=== PATIENT | female | born 1980 | race Caucasian/White ===

== ENCOUNTER 2017-08-09 03:19 | Emergency (ER) | payer MEDICAID, OTHER ==
[~2017-08-09] VITALS: Ht 162.6 cm; Wt 78.0 kg
[2017-08-09 03:35] VITALS: BP 132/66; PULSE 84; RESP 18; TEMP 98.5; O2SAT 100
[2017-08-09] MEDS ORDERED: ORPHENADRINE INJ 60 MG/2 ML AMP IM ONE (04:00)
[2017-08-09] MEDS ORDERED: KETOROLAC TROMETHAMINE 60 MG/2 ML (IM) VIAL IM ONE (04:00)
[2017-08-09] MEDS ORDERED: DEXAMETHASONE SOD PHOS 20 MG/5 ML VIAL IM ONE (04:00)
--- NOTE | 2017-08-09 04:17 | PD ---
HPI Chief Complaint: Pain: Acute or Chronic Time Seen by Provider: 03:50 Travel History International Travel<30 days: No Contact w/Intl Traveler<30days: No Traveled to known affect area: No History of Present Illness HPI Patient is a 36-year-old female presenting to the emergency department for evaluation of back pain. Back pain is chronic in nature however patient attempted to get out of bed to go to the bathroom just prior to arrival in her back tightened up. She localized the pain to the right paraspinal musculature in the lumbar region. She states the pain runs down the back of her right leg. She reports the pain is a 10 out of 10, she is currently taking Aleve only. Patient states she had an MRI performed with her primary doctor but does not know the results yet. She denies any bladder or bowel incontinence, no saddle paresthesia. No weakness in her extremities. Symptom onset was gradual, symptoms are moderate in nature. No alleviating factors. Pain is exacerbated with movement. PFSH Past Medical History Medical History: Denies Significant Hx ?: Not : 2 Para: 2 Past Surgical History Section: Yes Social History Alcohol Use: Yes (OCC) Tobacco Use: No Substance Use: No Allergies-Medications (Allergen,Severity, Reaction): Coded Allergies: penicillin V (Unverified Allergy, Mild, Rash, 10/28/16) Reported Meds & Prescriptions Reported Meds & Active Scripts Active Review of Systems Except as stated in HPI: all other systems reviewed are Neg Musculoskeletal: Positive: Myalgias, Cramping, Pain Neurologic: No: Weakness Physical Exam Narrative GENERAL: Well-developed, well-nourished, alert female. Presenting in no acute distress. SKIN: Warm and dry. HEAD: Atraumatic. Normocephalic. EYES: Pupils equal and round. No scleral icterus. No injection or drainage. ENT: No nasal bleeding or discharge. Mucous membranes pink and moist. NECK: Trachea midline. No JVD. CARDIOVASCULAR: Regular rate and rhythm. RESPIRATORY: No accessory muscle use. Clear to auscultation. Breath sounds equal bilaterally. GASTROINTESTINAL: Abdomen soft, non-tender, nondistended. Hepatic and splenic margins not palpable. MUSCULOSKELETAL: Extremities without clubbing, cyanosis, or edema. No obvious deformities. Tenderness to palpation in right paraspinal musculature in the lumbar region. NEUROLOGICAL: Awake and alert. No obvious cranial nerve deficits. Motor grossly within normal limits. Five out of 5 muscle strength in the arms and legs. Normal speech. Gait is steady. PSYCHIATRIC: Appropriate mood and affect; insight and judgment normal. Data Data Last Documented VS Vital Signs Date Time Temp Pulse Resp B/P (MAP) Pulse Ox O2 Delivery O2 Flow Rate FiO2 08/09/17 03:38 85 08/09/17 03:35 98.5 18 132/66 (88) 100 Orders Orders Ketorolac Inj (Toradol Inj) (08/09/17 04:00) Dexamethasone Inj (Decadron Inj) (08/09/17 04:00) Orphenadrine Inj (Norflex Inj) (08/09/17 04:00) Ed Discharge Order (08/09/17 05:40) [facility] Medical Decision Making Medical Screen Exam Complete: Yes Emergency Medical Condition: Yes Interpretation(s) Vital Signs Date Time Temp Pulse Resp B/P (MAP) Pulse Ox O2 Delivery O2 Flow Rate FiO2 08/09/17 03:38 85 08/09/17 03:35 98.5 84 18 132/66 (88) 100 Differential Diagnosis Muscle strain versus muscle spasm versus radiculopathy versus sciatica versus other Narrative Course Patient is a 36-year-old female presenting for evaluation of back pain that exacerbated when she got out of bed to go to the bathroom just prior to arrival. Patient was able to get out of bed and walk across the room in the emergency department. There are no focal deficits on exam. Patient was able to localize the pain to the paraspinal musculature in the lumbar region. At this point patient will be given Toradol, Norflex and dexamethasone. Will reassess. Care of patient was transferred to Kayy SIMEON at the end of my shift. She will determine patient's disposition. Wen Pascal August 09, 2017 04:17
--- NOTE | 2017-08-09 05:03 | PD ---
Physical Exam Date Seen by Provider: August 09, 2017 Narrative 36y female presents to the ED with LBP. She was evaluated by JUAN ANTONIO Carver and treated with Toradol, Norflex, and dexamethasone. Pt is reassessed and says she feels better. She says her legs are not as painful. She tells me that she had an MRI this week but has not had a follow-up regarding this imaging study. Says that she did not receive a phone call regarding any concerning findings except for a "bulging disc". This is reassuring. I had a discussion with her and her family regarding possible causes of her back pain I suspect that she has a severe muscle spasm versus strain of the back. Pt is ambulatory out of the ED today. Will discharge with muscle relaxer, Medrol Dosepak, and Toradol, She is strongly advised to follow up with her PCP and consider ortho. Data Data Last Documented VS Vital Signs Date Time Temp Pulse Resp B/P (MAP) Pulse Ox O2 Delivery O2 Flow Rate FiO2 08/09/17 03:38 85 08/09/17 03:35 98.5 18 132/66 (88) 100 Orders Orders Ketorolac Inj (Toradol Inj) (08/09/17 04:00) Dexamethasone Inj (Decadron Inj) (08/09/17 04:00) Orphenadrine Inj (Norflex Inj) (08/09/17 04:00) MDM Supervised Visit with JUAN CARLOS: No Diagnosis Primary Impression: Radiculopathy Qualified Codes: M54.17 - Radiculopathy, lumbosacral region Referrals: Primary Care Physician Additional Instruction: Perform light stretches of the lower back and legs, and alternate heat and ice packs. Take all medications as prescribed. Recommend follow-up with an orthopedic or realty loan specialist for further evaluation if your pain persists. Start the Medrol Dosepak tomorrow if your pain persists as you received a steroid in the emergency department today. If you develop increased pain, weakness, fever, chills, or bowel or bladder issues, return to the ED for further treatment and evaluation. Follow up with your primary care physician in 2-3 days. Scripts Methylprednisolone Dosepak (Medrol Dosepak) 4 Mg Dspk 4 MG PO DIRECTED, #1 DSPK 0 Refills Per Pharmacist direction Prov: Emil Cid DO 08/09/17 Methocarbamol (Robaxin) 750 Mg Tab 750 MG PO TID for Muscle Spasm for 5 Days, TAB 0 Refills Prov: Emil Cid DO 08/09/17 Ketorolac (Ketorolac) 10 Mg Tab 10 MG PO TID for Pain Management for 5 Days, TAB 0 Refills Prov: Emil Cid DO 08/09/17 Disposition: 01 DISCHARGE HOME Condition: Stable Kayy Meng August 09, 2017 05:03
[2017-08-09] MEDS ORDERED: MEDR4PAK PO (05:37)
[2017-08-09] MEDS ORDERED: ROBA750T PO (05:37)
[2017-08-09] MEDS ORDERED: KETO10 PO (05:37)
== END 2017-08-09 06:42 | disposition home or self-care (01) ==
LOC: NEPD 03:19
DX: M54.17 Radiculopathy, lumbosacral region (principal)
CPT/HCPCS: 96372; 99283; J1100; J1885; J2360

== ENCOUNTER 2017-08-09 07:54 | Inpatient (IN) | payer MEDICAID ==
[~2017-08-09] VITALS: Ht 157.5 cm; Wt 75.5 kg
[~2017-08-09 07:54] MED LIST: KETO10 PO; MEDR4PAK PO; ROBA750T PO
[2017-08-09 07:56] VITALS: BP 129/81; PULSE 118; RESP 20; TEMP 97.8; O2SAT 96
--- NOTE | 2017-08-09 08:33 | PD ---
HPI Chief Complaint: Back/ Neck Pain or Injury Time Seen by Provider: 08:18 Travel History International Travel<30 days: No Contact w/Intl Traveler<30days: No Traveled to known affect area: No History of Present Illness HPI 36-year-old female complains of severe low back pain, numbness around the pelvic area, weakness of lower extremity and urinary bladder incontinence. Patient states that she has history of chronic low back pain. Patient finally saw her physician a week ago. MRI of lumbar spine was ordered as outpatient at [facility] imaging. MRI of lumbar spine show significant central disc protrusion at L5-S1 with central canal stenosis. Patient states that she has been taking Aleve for pain. Patient had a trial of 4 days of oral steroid in the past without relief of the pain. Patient states that the pain get worse since last night. Patient states that the pain is sharp pain and aching pain with radiation to the right leg. Patient states that the pain is worse with movement. Patient states that she started having numbness of the pelvic area since last night. Patient states that she had urinary bladder incontinence this morning. Patient states that she has severe weakness of bilateral lower extremity that she was unable to walk this morning. Patient denies any injury. Patient denies any fever chills. Patient denies any medical problem. Patient is not on any routine medications except Aleve as needed for back pain. Patient denies any chance of being . Patient was seen in emergency room earlier today. Patient was given Toradol, Norflex and dexamethasone injection. Patient was discharged home with prescription for Medrol Dosepak and pain medication. Patient states that the pain is worse and patient came back to ED. PFSH Past Medical History Medical History: Denies Significant Hx ?: Not LMP: 07/15/17 : 2 Para: 2 Past Surgical History Section: Yes Social History Alcohol Use: Yes (OCC) Tobacco Use: No Substance Use: No Allergies-Medications (Allergen,Severity, Reaction): Coded Allergies: penicillin V (Unverified Allergy, Mild, Rash, 10/28/16) Reported Meds & Prescriptions Reported Meds & Active Scripts Active Medrol Dosepak (Methylprednisolone) 4 Mg Dspk 4 Mg PO DIRECTED Per Pharmacist direction Robaxin (Methocarbamol) 750 Mg Tab 750 Mg PO TID 5 Days Ketorolac (Ketorolac Tromethamine) 10 Mg Tab 10 Mg PO TID 5 Days Review of Systems General / Constitutional: No: Fever Eyes: No: Visual changes HENT: No: Headaches Cardiovascular: No: Chest Pain or Discomfort Respiratory: No: Shortness of Breath Gastrointestinal: No: Abdominal Pain Genitourinary: No: Dysuria Musculoskeletal: No: Pain Skin: No Rash Neurologic: Positive: Weakness, Paresthesia, Incontinence Psychiatric: No: Depression Endocrine: No: Polydipsia Hematologic/Lymphatic: No: Easy Bruising Physical Exam Narrative GENERAL: Well-nourished, well-developed patient. SKIN: Focused skin assessment warm/dry. HEAD: Normocephalic. EYES: No scleral icterus. No injection or drainage. NECK: Supple, trachea midline. No JVD or lymphadenopathy. CARDIOVASCULAR: Regular rate and rhythm without murmurs, gallops, or rubs. RESPIRATORY: Breath sounds equal bilaterally. No accessory muscle use. GASTROINTESTINAL: Abdomen soft, non-tender, nondistended. MUSCULOSKELETAL: No cyanosis, or edema. BACK: Patient has moderate to severe tenderness in palpation of lumbar area, without obvious deformity. No CVA tenderness. Positive straight leg raising bilaterally. Neurologic exam: Patient is awake and alert oriented 3. Patient has mild decrease in light touch sensation in the pelvic area. Patient can lift both legs off the bed. Deep tendon reflex 2+ and equal. Negative Babinski. Data Data Last Documented VS Vital Signs Date Time Temp Pulse Resp B/P (MAP) Pulse Ox O2 Delivery O2 Flow Rate FiO2 08/09/17 07:56 97.8 118 20 129/81 (97) 96 Orders Orders Complete Blood Count With Diff (08/09/17 08:39) Basic Metabolic Panel (Bmp) (08/09/17 08:39) Urinalysis - C+S If Indicated (08/09/17 08:39) Iv Access Insert/Monitor (08/09/17 08:39) Morphine Inj (Morphine Inj) (08/09/17 08:45) Ondansetron Odt (Zofran Odt) (08/09/17 08:45) Sodium Chlor 0.9% 1000 Ml Inj (Ns 1000 M (08/09/17 08:45) Consult Neurosurgery (08/09/17 ) [facility] Medical Decision Making Medical Screen Exam Complete: Yes Emergency Medical Condition: Yes Differential Diagnosis Differential diagnosis including cauda equina syndrome, radiculopathy, spinal stenosis. Narrative Course 36-year-old female with severe low back pain, urinary incontinence, numbness around the pelvis area and weakness of lower extremity. Patient was seen and given pain medication without relief. I spoke with Dr. Guadalupe, neurosurgeon. Advised admission and neurosurgeon evaluation. N.p.o. Normal saline solution 1 25 cc an hour. Morphine 2 mg IV. Zofran 4 mg ODT. Diagnosis Primary Impression: Cauda equina syndrome Admitting Information Admitting Physician Requests: Observation Pb Alves MD August 09, 2017 08:33
[2017-08-09] MEDS ORDERED: ONDANSETRON ODT 4 MG TAB PO ONE (08:45)
[2017-08-09] MEDS ORDERED: MORPHINE SULFATE 4 MG/ML INJ IV PUSH ONE (08:45)
[2017-08-09] MEDS ORDERED: SODIUM CHLOR 0.9% 1000 ML INJ 1,000 ML IV SCH ×2 (08:45→09:16)
[2017-08-09 09:16] VITALS: BP 121/68; PULSE 108; RESP 18; O2SAT 98
--- NOTE | 2017-08-09 09:16 | HHI.HP ---
[facility] Service Family Medicine Primary Care Physician Kam Blake MD Admission Diagnosis Cauda equina syndrome Diagnoses: International Travel<30 Days: No Contact w/Intl Traveler<30days: No Known Affected Area: No History of Present Illness 36-year-old female presents to the ED with severe low back pain, pelvic numbness , and urinary incontinence. Accompanied by . Patient states that she has had chronic back pain for months. She states that 2 weeks ago she couldn't get out of bed and started having sharp, shooting, aching pain starting from her lower back down to her right leg. States that she had numbness and tingling in her legs as well. She states that she is only able to walk short periods throughout the house due to pain. States that she has been mostly bedrest for the past 2 weeks. She has tried Aleve without relief. She has had no prior injuries to her back. She states that she tripped over her dog and fell on her bottom prior to her symptoms. She states that she saw her physician , Dr. Blake, a week ago. MR lumbar spine without contrast was ordered. MRI spine on 08-06-17 demonstrated significant central disc protrusion at L5-S1 with central canal stenosis. Patient was prescribed 4 days of oral steriods without relief. She was also referred to pain management but was unable to go. Last night she came to the ER around 3 AM via [facility] for severe back pain and pelvic numbness. states that she could not get out of bed because of the pain. She was given Toradol, Norflex, and dexamethasone injection. She was discharged home. On her way home, she states that she had loss control of her bladder and continued to have severe back pain. She was advised by her nurse friend to come back to the ED. She states that she has difficulty walking due to weakness, but is able to move her legs. She denies chest pain, shortness of breath, headache, abdominal pain, and nausea vomiting. (Maggie Fuentes MD R1) History of Present Illness 36-year-old female presenting to the emergency department with relatively acute onset severe low back pain with radicular symptoms and urinary incontinence. She has a history of chronic back pain for several months but started having radicular symptoms approximately 2 weeks ago. She presented to the emergency department with acute onset numbness around her pelvis and urinary incontinence. 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 She did not receive any relief with oral corticosteroids, Toradol, Norflex, or dexamethasone injection. She was seen by neurosurgery who plans to take her to the operating room for emergent decompression of the L5-S1 protruding disc. (Dustin Vazquez MD) Review of Systems Constitutional: COMPLAINS OF: Chills, DENIES: Fever, Weight loss, Change in appetite Endocrine: DENIES: Abnorml menstrual pattern Eyes: DENIES: Eye pain Ears, nose, mouth, throat: DENIES: Hearing loss, Nasal discharge, Running Nose , Sinus Pain Respiratory: DENIES: Cough, Shortness of breath Cardiovascular: DENIES: Chest pain, Palpitations Gastrointestinal: COMPLAINS OF: Nausea, DENIES: Abdominal pain, Bloody stools, Diarrhea, Vomiting Genitourinary: DENIES: Abnormal vaginal bleeding, Dysuria Musculoskeletal: COMPLAINS OF: Back pain Integumentary: DENIES: Rash Neurologic: DENIES: Headache (hx of migranes ) (Maggie Fuentes MD R1) Past Family Social History Past Medical History None Past Surgical History two C-sections- uncomplicated (Maggie Fuentes MD R1) Allergies: Coded Allergies: penicillin V (Unverified Allergy, Mild, Rash, 10/28/16) Family History Mom and Dad- alive and healthy Social History [id number] mom, lives with and 2 kids Never smoker Occasional drinker Denies illicit drug use (Maggie Fuentes MD R1) Physical Exam Vital Signs Vital Signs Date Time Temp Pulse Resp B/P (MAP) Pulse Ox O2 Delivery O2 Flow Rate FiO2 08/09/17 07:56 97.8 118 20 129/81 (97) 96 Physical Exam GENERAL: This is a well-nourished, well-developed patient, in no apparent distress. SKIN: No rashes, ecchymoses or lesions. Cool and dry. HEAD: Atraumatic. Normocephalic. No temporal or scalp tenderness. EYES: Pupils equal round and reactive. Extraocular motions intact. No scleral icterus. No injection or drainage. ENT: Nose without bleeding, purulent drainage or septal hematoma. Throat without erythema, tonsillar hypertrophy or exudate. Uvula midline. Airway patent. NECK: Trachea midline. No JVD or lymphadenopathy. Supple, nontender, no meningeal signs. CARDIOVASCULAR: Regular rate and rhythm without murmurs, gallops, or rubs. RESPIRATORY: Clear to auscultation. Breath sounds equal bilaterally. No wheezes , rales, or rhonchi. GASTROINTESTINAL: Abdomen soft, non-tender, nondistended. No hepato-splenomegaly , or palpable masses. No guarding. MUSCULOSKELETAL: Extremities without clubbing, cyanosis, or edema. No joint tenderness, effusion, or edema noted. No calf tenderness. Negative Homans sign bilaterally. NEUROLOGICAL: Awake, alert, and oriented x 3. Cranial nerves II through XII intact. Motor and sensory wnl b/l. Saddle anesthesia noted. 5/5 in upper extremities. 4/5 in lower extremities. No foot drop noted. Reflexes 2+ in upper and lower extremities. No clonus noted. Rcvosl-[id number]-[id number] test normal. Negative pronator drift. Normal speech. Laboratory Laboratory Tests Test 08/09/17 08:05 (Maggie Fuentes MD R1) Physical Exam Patient being taken to the OR so exam was deferred. See resident physical exam for details (Dustin Vazquez MD) Caprini VTE Risk Assessment Caprini VTE Risk Assessment: No/Low Risk (score <= 1) Caprini Risk Assessment Model Point Value = 1 Point Value = 2 Point Value = 3 Point Value = 5 Age 41-60 Minor surgery BMI > 25 kg/m2 Swollen legs Varicose veins or History of unexplained or recurrent spontaneous Oral contraceptives or hormone replacement Sepsis (< 1 month) Serious lung disease, including pneumonia (< 1 month) Abnormal pulmonary function Acute myocardial infarction Congestive heart failure (< 1 month) History of inflammatory bowel disease Medical patient at bed rest Age 61-74 Arthroscopic surgery Major open surgery (> 45 min) Laparoscopic surgery (> 45 min) Malignancy Confined to bed (> 72 hours) Immobilizing plaster cast Central venous access Age >= 75 History of VTE Family history of VTE Factor V Leiden Prothrombin [id number] Lupus anticoagulant Anticardiolipin antibodies Elevated serum homocysteine Heparin-induced thrombocytopenia Other congenital or acquired thrombophilia Stroke (< 1 month) Elective arthroplasty Hip, pelvis, or leg fracture Acute spinal cord injury (< 1 month) Prophylaxis Regimen Total Risk Factor Score Risk Level Prophylaxis Regimen 0-1 Low Early ambulation 2 Moderate Order ONE of the following: *Sequential Compression Device (SCD) *Heparin 5000 units SQ BID 3-4 Higher Order ONE of the following medications: *Heparin 5000 units SQ TID *Enoxaparin/Lovenox 40 mg SQ daily (WT < 150 kg, CrCl > 30 mL/min) *Enoxaparin/Lovenox 30 mg SQ daily (WT < 150 kg, CrCl > 10-29 mL/min) *Enoxaparin/Lovenox 30 mg SQ BID (WT < 150 kg, CrCl > 30 mL/min) AND/OR *Sequential Compression Device (SCD) 5 or more Highest Order ONE of the following medications: *Heparin 5000 units SQ TID (Preferred with Epidurals) *Enoxaparin/Lovenox 40 mg SQ daily (WT < 150 kg, CrCl > 30 mL/min) *Enoxaparin/Lovenox 30 mg SQ daily (WT < 150 kg, CrCl > 10-29 mL/min) *Enoxaparin/Lovenox 30 mg SQ BID (WT < 150 kg, CrCl > 30 mL/min) AND *Sequential Compression Device (SCD) (Maggie Fuentes MD R1) Assessment and Plan Assessment and Plan 36-year-old female presents to the ED with saddle anesthesia and urinary incontinence consistent with cauda equina syndrome. Neurosurgery consulted. Code Status Full code Discussed Condition With Dr. Alves and Dr. Little (Maggie Fuentes MD R1) Attending Attestation THIS CASE WAS DISCUSSED WITH THE RESIDENT PHYSICIANS. I HAVE REVIEWED THE RECORD AND AGREE WITH THE ABOVE NOTE AND PLAN OF CARE WAS DISCUSSED. I HAVE AUTHORIZED THE ORDER FOR ADMISSION TO AN IN-PATIENT STATUS. (Dustin Vazquez MD) Problem List: (1) Cauda equina syndrome ICD Codes: G83.4 - Cauda equina syndrome Status: Acute Plan: Patient presenting with cauda equina urinary incontinence. MRI lumbar spine without contrast on 08-06-17 demonstrates central disc protrusion at L5-S1 with central canal stenosis Neurosurgery consulted. will see patient for possible surgery. NPO IV fluids- maintenance rate Pain control with Manley and morphine for breakthrough Mann catheter placed Patient received ketorolac 60 mg IM, dexamethasone 10 mg IM and Norflex 60 mg IM during first visit to the ED this morning. (2) Nutrition, metabolism, and development symptoms ICD Codes: R63.8 - Other symptoms and signs concerning food and fluid intake Plan: Diet: N.p.o. Fluids: NS MIVF vitals q4h, monitor I &Os DVT ppx: SCDs PT and case management consulted (Maggie Fuentes MD R1) Physician Certification 2 Midnight Certification Type: Admission for Inpatient Services Order for Inpatient Services The services are ordered in accordance with Medicare regulations or non- Medicare payer requirements, as applicable. In the case of services not specified as inpatient-only, they are appropriately provided as inpatient services in accordance with the 2-midnight benchmark. Estimated LOS (days): 2 2 days is the estimated time the patient will need to remain in the hospital, assuming treatment plan goals are met and no additional complications. Post-Hospital Plan: Home (Maggie Fuentes MD R1) Maggie Fuentes MD R1 August 09, 2017 09:16 Dustin Vazquez MD August 09, 2017 14:25
[2017-08-09 09:20] LABS: AUTOMATED NEUTROPHIL # 8.9 TH/MM3 (1.8-7.7); BASOPHIL % 0.2 % (0.0-2.0); HEMATOCRIT 40.1 % (35.0-46.0); HEMOGLOBIN 13.2 GM/DL (11.6-15.3); LYMPH % 4.6 % (9.0-44.0); LYMPHOCYTE # 0.4 TH/MM3 (1.0-4.8); MEAN CELL VOLUME 80.1 FL (80.0-100.0); MEAN CORPUSCULAR HEMOGLOBIN 26.5 PG (27.0-34.0); MEAN PLATELET VOLUME 8.5 FL (7.0-11.0); MONO % 0.8 % (0.0-8.0); MONOCYTE # 0.1 TH/MM3 (0-0.9); NEUT % 94.4 % (16.0-70.0); PLATELET COUNT 268 TH/MM3 (150-450); RED BLOOD COUNT 5.01 MIL/MM3 (4.00-5.30); RED CELL DISTRIBUTION WIDTH 13.7 % (11.6-17.2); WHITE BLOOD COUNT 9.4 TH/MM3 (4.0-11.0)
[2017-08-09] MEDS: SODIUM CHLORIDE 0.9% FLUSH 10 ML FLUSH IV FLUSH SCH ×2 (09:30→21:00)
[2017-08-09 09:42] LABS: BICARBONATE 21.3 MEQ/L (21.0-32.0); CALCIUM 9.4 MG/DL (8.5-10.1); CREATININE 0.69 MG/DL (0.50-1.00)
[2017-08-09] MEDS ORDERED: MAGNESIUM HYDROXIDE SUSP 30 ML CUP PO PRN (10:00)
[2017-08-09] MEDS ORDERED: BISACODYL 10 MG SUPP RECTAL PRN (10:00)
[2017-08-09] MEDS ORDERED: SENNOSIDES 8.6 MG TAB PO PRN (10:00)
[2017-08-09] MEDS ORDERED: ACETAMINOPHEN/HYDROcodone 325 MG/5 MG TAB PO PRN (10:00)
[2017-08-09 11:11] LABS: BILIRUBIN, URINE NEG (NEG); BLOOD, URINE NEG (NEG); GLUCOSE,URINE NEG (NEG); KETONE, URINE 10 mg/dL (NEG); NITRITE,URINE NEG (NEG); PH, URINE 6.5 (5.0-8.5); SQUAMOUS EPITHELIAL CELL URINE 1 /hpf (0-5); URINE COLOR YELLOW (YELLW/STRAW); URINE LEUKOCYTE ESTERASE NEG (NEG)
[2017-08-09] MEDS: DOCUSATE SODIUM 50 MG/SENNA 8.6 MG TAB PO SCH ×2 (11:52→21:12)
[2017-08-09] MEDS: ACETAMINOPHEN/HYDROcodone 325 MG/7.5 MG TAB PO PRN ×2 (11:56→19:26)
[2017-08-09] MEDS ORDERED: LIDOCAINE HCL 1% PF 5 ML SYRINGE OTHER ONE (12:00)
[2017-08-09] MEDS ORDERED: PHENYLEPH/NS 1000 MCG/10 ML SYR IV ONE (12:00)
[2017-08-09] MEDS ORDERED: ONDANSETRON HCL 4 MG/2 ML VIAL IV PUSH ONE (12:00)
[2017-08-09] MEDS ORDERED: PROPOFOL 200 MG/20 ML AMP IV ONE (12:00)
[2017-08-09] MEDS ORDERED: ROCURONIUM INJ 50 MG/5 ML SYRINGE IV PUSH ONE (12:00)
[2017-08-09] MEDS ORDERED: GLYCOPYRROLATE 1 MG/5 ML SYRINGE IV PUSH ONE (12:00)
[2017-08-09] MEDS ORDERED: DEXAMETHASONE SOD PHOS 4 MG/ML VIAL IV ONE ×2 (12:00)
[2017-08-09] MEDS ORDERED: NEOSTIGMINE 5 MG/5 ML SYRINGE IV PUSH ONE (12:00)
[2017-08-09] MEDS ORDERED: LACTATED RINGER'S 1000 ML INJ 2,000 ML IV ONE (12:00)
[2017-08-09] MEDS ORDERED: ESMOLOL HCL 100 MG/10 ML VIAL IV ONE (12:00)
[2017-08-09 12:18] VITALS: BP 112/63; PULSE 102; RESP 18; TEMP 97.6; O2SAT 97
--- NOTE | 2017-08-09 12:35 | PD.CONS ---
History of Present Illness Service Neurosurgery Consult Requested By Medicine service Reason for Consult Lumbar disc herniation Primary Care Physician Kam Blake MD Diagnoses: History of Present Illness 36-year-old female presented to the emergency room early on the morning of 2017 with complaint of chronic back pain with acute onset of severe spasm when she try to get out of bed just prior to her emergency room visit. She states that the severe low back pain with some radiation to the right lower extremity started approximately 10 days ago. She had no numbness in the pelvic region or lower extremities until early this morning. She was given Toradol and Norflex and dexamethasone in the emergency room earlier this morning with significant improvement in her pain symptoms. She was released home for follow- up with her primary care physician who had previously obtained an MRI of the lumbar spine on 08/06/2017. The patient returned to the emergency room later this morning with complaint of recurrent severe low back pain with numbness around the pelvic region and lower extremity weakness and bladder incontinence which she states started earlier in the morning. Review of Systems Constitutional: DENIES: Fever, Chills Eyes: DENIES: Blurred vision, Diplopia Ears, nose, mouth, throat: DENIES: Vertigo Respiratory: DENIES: Shortness of breath Cardiovascular: DENIES: Chest pain Gastrointestinal: DENIES: Abdominal pain, Nausea Genitourinary: COMPLAINS OF: Urinary incontinence Musculoskeletal: COMPLAINS OF: Muscle aches, Back pain, DENIES: Joint pain Hematologic/lymphatic: DENIES: Bruising Neurologic: COMPLAINS OF: Abnormal gait, DENIES: Headache Psychiatric: DENIES: Depression Past Family Social History Allergies: Coded Allergies: penicillin V (Unverified Allergy, Mild, Rash, 10/28/16) Past Medical History No history of significant cardiac pulmonary gastrointestinal disease diabetes or hypertension Past Surgical History Reported Medications Reported Meds & Active Scripts Active Social History No tobacco use Occasional alcohol Physical Exam Vital Signs Vital Signs Date Time Temp Pulse Resp B/P (MAP) Pulse Ox O2 Delivery O2 Flow Rate FiO2 08/09/17 12:18 97.6 102 18 112/63 (79) 97 08/09/17 10:36 (85) 08/09/17 09:30 16 08/09/17 09:16 108 18 121/68 (85) 98 Room Air 08/09/17 07:56 97.8 118 20 129/81 (97) 96 Physical Exam GENERAL: This is a well-nourished, well-developed patient, in no apparent distress. SKIN: No rashes, ecchymoses or lesions. Cool and dry. EYES: Sclera clear and nonicteric ENT: No facial edema or ecchymosis NECK: No apparent limitation of neck range of motion CARDIOVASCULAR: Pulse regular RESPIRATORY: Respirations clear nonlabored GASTROINTESTINAL: Abdomen soft, non-tender, nondistended. MUSCULOSKELETAL: No edema or cyanosis. No upper or lower extremity long bone or joint deformity NEUROLOGICAL: Awake and alert oriented conversant appropriate Speech clear Recent and remote memory intact No evidence of anxiety Reasonable judgment and insight Follow simple commands well Extraocular movements intact Facial motor movements symmetric Sensation intact light touch upper extremity and proximal lower extremities with complaint of paresthesias to light touch in the bilateral calf and foot. Strength is within normal limits throughout the upper extremity major flexion and extension groups and hand intrinsics She has 4-4+/5 strength in bilateral iliopsoas quadriceps and hamstrings with complaint of back pain with this testing. Strength is 5/5 in bilateral tibialis anterior, gastrocsoleus, extensor hallucis longus, and flexor digitorum. Goldberg's response absent bilateral No lower extremity spasms noted Laboratory Laboratory Tests Test 08/09/17 08:05 08/09/17 10:30 White Blood Count 9.4 Red Blood Count 5.01 Hemoglobin 13.2 Hematocrit 40.1 Mean Corpuscular Volume 80.1 Mean Corpuscular Hemoglobin 26.5 Mean Corpuscular Hemoglobin Concent 33.0 Red Cell Distribution Width 13.7 Platelet Count 268 Mean Platelet Volume 8.5 Neutrophils (%) (Auto) 94.4 Lymphocytes (%) (Auto) 4.6 Monocytes (%) (Auto) 0.8 Eosinophils (%) (Auto) 0.0 Basophils (%) (Auto) 0.2 Neutrophils # (Auto) 8.9 Lymphocytes # (Auto) 0.4 Monocytes # (Auto) 0.1 Eosinophils # (Auto) 0.0 Basophils # (Auto) 0.0 CBC Comment DIFF FINAL Differential Comment Blood Urea Nitrogen 17 Creatinine 0.69 Random Glucose 140 Calcium Level 9.4 Sodium Level 139 Potassium Level 3.9 Chloride Level 110 Carbon Dioxide Level 21.3 Anion Gap 8 Estimat Glomerular Filtration Rate 97 Urine Color YELLOW Urine Turbidity CLEAR Urine pH 6.5 Urine Specific [place] 1.011 Urine Protein NEG Urine Glucose (UA) NEG Urine Ketones 10 Urine Occult Blood NEG Urine Nitrite NEG Urine Bilirubin NEG Urine Urobilinogen LESS THAN 2.0 Urine Leukocyte Esterase NEG Urine RBC 1 Urine WBC LESS THAN 1 Urine Squamous Epithelial Cells 1 Microscopic Urinalysis Comment CULT NOT INDICATED Result Diagram: 08/09/1705 08/09/1705 Imaging 08/06/2017 MRI lumbar spine [facility] images are reviewed. The study reveals a large L5-S1 herniated nucleus pulposus with severe canal compromise, this arises primarily to the right of midline. There is moderate decreased signal intensity of the L5-S1 disc. No significant subluxation. Assessment and Plan Assessment and Plan Impression: 1. Large sequestered L5-S1 herniated nucleus pulposus with severe canal stenosis 2. History and findings suggestive of onset cauda equina syndrome this morning. Plan: Findings discussed with the patient. Plan is to proceed emergently with lumbar laminectomy and discectomy. Operating room has been notified earlier this morning prior to patient being seen, awaiting present cases to clear. Procedure, risks, possible complications, prognosis have been fully discussed. She understands that there is no guarantee regarding recovery of neurologic function. Risk of recurrent disc herniation advised. All questions answered. Consents have been fully reviewed with the patient in the presence of her family. We will give additional dose of steroids preoperative. Shady Guadalupe MD August 09, 2017 12:35
[2017-08-09] MEDS ORDERED: DEXAMETHASONE SOD PHOS 20 MG/5 ML VIAL IV PUSH ONE (13:15)
[2017-08-09] MEDS ORDERED: GELFOAM SIZE 100 ONE (13:39)
[2017-08-09] MEDS ORDERED: LIDOCAINE 1%/EPINEPHrine 1:100,000 SOLN 20 ML VIAL ONE (13:39)
[2017-08-09] MEDS ORDERED: BUPIVACAINE/EPINEPHRINE 0.5% PF 10 ML VIAL ONE (13:39)
[2017-08-09] MEDS ORDERED: THROMBIN (TOPICAL) 5,000 UNIT VIAL ONE (13:39)
[2017-08-09] MEDS ORDERED: GENTAMICIN SULFATE 80 MG/2 ML VIAL ONE (13:40)
[2017-08-09] MEDS ORDERED: LACTATED RINGER'S 1000 ML IV PRN (13:45)
[2017-08-09] MEDS ORDERED: SODIUM CHLORID 0.9% 500 ML IV PRN (13:45)
[2017-08-09] MEDS ORDERED: POVIDONE IODINE 5% (ANTISEPSIS KIT) 4 APPLICATIONS EACH NARE PRN (13:45)
[2017-08-09] MEDS ORDERED: CHLORHEXIDINE GLUCONATE 2 % 1 PACK (2 CLOTHS) TOPICAL PRN (13:45)
[2017-08-09] MEDS ORDERED: METOPROLOL TARTRATE 25 MG TAB PO PRN (13:45)
[2017-08-09] MEDS ORDERED: ACETAMINOPHEN 1000 MG/100 ML 100 ML IV ONE (13:48)
[2017-08-09] MEDS ORDERED: CLINDAMYCIN PHOS 600 MG/4 ML VIAL ONE (14:43)
[2017-08-09] MEDS ORDERED: BUPIVACAINE LIPOSOME PF 1.3% 20 ML VIAL ONE (16:03)
[2017-08-09] MEDS ORDERED: DO NOT ADM ANY ANTICOAGULANT DRUGS PRN (16:53)
[2017-08-09] MEDS ORDERED: MIDAZOLAM HCL 2 MG/2 ML VIAL ONE (17:00)
--- NOTE | 2017-08-09 17:34 | PD.OP ---
Operative Report Date of Surgery: August 09, 2017 Preoperative Diagnosis: (1) Herniated nucleus pulposus, lumbar (2) Cauda equina syndrome 1. Large L5-S1 herniated nucleus pulposus 2. Acute cauda equina syndrome Postoperative Diagnosis: (1) Herniated nucleus pulposus, lumbar (2) Cauda equina syndrome 1. Large L5-S1 herniated nucleus pulposus 2. Acute cauda equina syndrome Procedure: Right L5 semi-laminectomy, resection large sequestered herniated nucleus pulposus Anesthesia: General Surgeon: Shady Guadalupe Resin Painter(s): [place] Operation and Findings: Indications: 36-year-old female with 10 days of back pain with radiation to the right lower extremity presents to the emergency room on the day of surgery with new onset perineal numbness and loss of bladder control. Recent MRI reveals large sequestered L5-S1 herniated nucleus pulposus with severe canal compromise. Findings: Large sequestered L5-S1 herniated nucleus pulposus with significant thecal sac compression. Procedure in detail: The patient was brought into the operating room and general endotracheal anesthesia induced without difficulty. Knee-high sequential compression devices were placed. Lines were established by Anesthesia The patient was placed in prone position on the concentric Jermaine table with the side bolsters and all extremities appropriately padded Appropriate timeout procedure was performed with all personal present and in agreement The lumbar region was shaved with clippers and sterilely prepped and draped. 1% Xylocaine with epinephrine was used for local infiltration over the incision site which was made just to the right of midline at the L5-S1 level. The incision was carried sharply down to the lumbodorsal fascia which was incised just adjacent to the spinous processes. Gonzales elevator was used for subperiosteal elevation of paraspinous musculature and away from the lamina and spinous process of L5 on the right side. The ligamentous attachments to the spinous process were left intact. The deep self-retaining retractor was placed. The appropriate level was verified with intraoperative C-arm. The microscope was moved into place and used for the remainder of the procedure including the closure. The TPS drill with the 5 mm bone bur followed by the 3 mm Kerrison rongeur was used to remove the inferior aspect of the inferior right L5 lamina . The medial facet was carefully preserved. The ligamentum flavum was elevated away from the thecal sac and resected with the Kerrison rongeur which was also used to further remove ligamentum along the lateral recess. The exiting right S1 nerve root was traced down to the medial aspect of the inferior pedicle and traced back to the exit from the thecal sac. The thecal sac was severely compressed by the large sequestered disc fragment. In order to avoid excessive retraction of the thecal sac or the exiting right S1 nerve root, the fragment was removed by working between these 2 structures. A 10 layer of adipose tissue over the disc fragment was dissected and the [place] dissector was used to free up the disc fragment from the surrounding neural structures. Great care was taken not to significantly retract any of the adjacent neural structures. In order to avoid any further compression on the thecal sac the disc fragment was pushed down away from the thecal sac as it was removed from the spinal canal. The herniated disc material was removed primarily in a large single fragment. Further small fragments of disc material were then removed from beneath the thecal sac. The annulus was very stretched with a large central tear. The bipolar forceps were utilized to shrink down the annulus away from the thecal sac and nerve root. The [place] 4 dissector was used to probe into the disc space through the existing defect in the annulus, and any further loose fragments of disc material in the intervertebral disc space were removed. The neural structures appeared well decompressed at the end of the procedure. Bleeding was carefully controlled with bone wax for the bone bleeding and bipolar forceps. There is no significant bleeding time of closure. No cerebrospinal fluid leakage was encountered. The closure was performed with 0 Vicryl interrupted for the deep and superficial fascia, with 3-0 Vicryl interrupted for the subcutaneous closure, and 4-0 Vicryl running for the subcuticular closure. The dressing of sterile Mastisol, Steri-Strips, and Primapore dressing was applied. The patient was taken to recovery room in stable condition. All counts were correct at the end of the case. No specimen was sent to pathology. Estimated blood loss was 25 cc . Shady Guadalupe MD August 09, 2017 17:34
--- NOTE | 2017-08-09 17:55 | RADRPT ---
EXAM DATE: 08/09/2017 5:38 PM EDT AGE/SEX: 36 years / Female INDICATIONS: Discectomy L5-S1. Level localization. CLINICAL DATA: This is the patient's initial encounter. Patient reports that signs and symptoms have been present for 2 days and indicates a pain score of Nonresponsive. MEDICAL/SURGICAL HISTORY: None. None. COMPARISON: No prior [facility] exams available for comparison. FINDINGS: Lateral views of the lumbar spine were performed for level localization. Posterior instrumentation is located at the L5-S1 level. CONCLUSION: Level localizer at L5-S1. Electronically signed by: Eliud Iniguez MD 08/09/2017 5:54 PM EDT
[2017-08-09] MEDS: 1/2 NS + KCL 20 MEQ INJ 1,000 ML IV SCH (19:23)
[2017-08-09 20:00] VITALS: BP 139/63; PULSE 98; RESP 18; TEMP 98.2; O2SAT 94; O2SAT 98
[2017-08-09] MEDS: ONDANSETRON ODT 4 MG TAB PO PRN (21:11)
[2017-08-09] MEDS: MORPHINE SULFATE 4 MG/ML INJ IV PUSH PRN (21:12)
[2017-08-10] VITALS: BP 111/55; PULSE 99; RESP 18; TEMP 98.8; O2SAT 95
[2017-08-10] MEDS: ACETAMINOPHEN/HYDROcodone 325 MG/7.5 MG TAB PO PRN ×5 (00:05→20:24)
[2017-08-10] MEDS: ONDANSETRON ODT 4 MG TAB PO PRN (02:22)
[2017-08-10] MEDS: MORPHINE SULFATE 4 MG/ML INJ IV PUSH PRN ×3 (02:23→22:04)
[2017-08-10 04:00] VITALS: BP 106/67; PULSE 94; RESP 18; TEMP 98.3; O2SAT 98
[2017-08-10] MEDS: 1/2 NS + KCL 20 MEQ INJ 1,000 ML IV SCH (05:22)
[2017-08-10 07:31] LABS: BASOPHIL % 0.2 % (0.0-2.0); HEMOGLOBIN 11.4 GM/DL (11.6-15.3); LYMPH % 15.2 % (9.0-44.0); LYMPHOCYTE # 1.6 TH/MM3 (1.0-4.8); MEAN CELL VOLUME 80.4 FL (80.0-100.0); MEAN CORPUSCULAR HEMOGLOBIN 26.9 PG (27.0-34.0); MEAN CORPUSCULAR HGB CONC 33.4 % (32.0-36.0); MEAN PLATELET VOLUME 8.8 FL (7.0-11.0); MONO % 8.7 % (0.0-8.0); MONOCYTE # 0.9 TH/MM3 (0-0.9); NEUT % 75.9 % (16.0-70.0); PLATELET COUNT 240 TH/MM3 (150-450); RED BLOOD COUNT 4.23 MIL/MM3 (4.00-5.30); RED CELL DISTRIBUTION WIDTH 14.3 % (11.6-17.2); WHITE BLOOD COUNT 10.6 TH/MM3 (4.0-11.0)
[2017-08-10 08:00] VITALS: BP 122/61; PULSE 97; RESP 18; TEMP 98.4; O2SAT 96
[2017-08-10 08:04] LABS: BICARBONATE 22.8 MEQ/L (21.0-32.0); CALCIUM 8.6 MG/DL (8.5-10.1); CREATININE 0.55 MG/DL (0.50-1.00)
[2017-08-10] MEDS: SODIUM CHLORIDE 0.9% FLUSH 10 ML FLUSH IV FLUSH SCH ×2 (09:02→20:30)
[2017-08-10] MEDS: DOCUSATE SODIUM 50 MG/SENNA 8.6 MG TAB PO SCH ×2 (09:03→20:23)
--- NOTE | 2017-08-10 11:38 | HHI.FPPN ---
Subjective Remarks No acute events overnight. Patient sitting up in a chair, watching TV. Parents at bedside. Patient states that she is feeling well this morning. She still has decreased sensation around her perianal and vaginal region. She had her Mann catheter removed yesterday. She is not sure she is urinating normally. She has not needed to urinate since then. Tolerating diet well. She states that she was able to walk down the hallway with a walker this morning. She denies any chest pain, shortness of breath, abdominal pain, calf tenderness. (Maggie Fuentes MD R1) Objective Vitals Vital Signs Date Time Temp Pulse Resp B/P (MAP) Pulse Ox O2 Delivery O2 Flow Rate FiO2 08/10/17 08:00 98.4 97 18 122/61 (81) 96 08/10/17 04:00 98.3 94 18 106/67 (80) 98 08/10/17 00:00 98.8 99 18 111/55 (73) 95 08/09/17 20:00 98.2 98 18 139/63 (88) 94 08/09/17 20:00 98 21 08/09/17 17:45 98.7 96 15 129/75 (93) 99 Nasal Cannula 2 08/09/17 17:30 97 13 131/71 (91) 95 Nasal Cannula 2 08/09/17 17:15 101 18 124/67 (86) 98 Nasal Cannula 2 08/09/17 17:00 102 16 124/66 (85) 97 Nasal Cannula 2 08/09/17 16:51 98.6 111 16 116/62 (80) 97 Nasal Cannula 2 08/09/17 12:18 97.6 102 18 112/63 (79) 97 I/O 08/09/17 08/09/17 08/09/17 08/10/17 08/10/17 08/10/17 07:00 15:00 23:00 07:00 15:00 23:00 Intake Total 2200 ml 981 ml Output Total 425 ml 1350 ml Balance 1775 ml -369 ml Intake IV Total 0 ml 981 ml Other 2200 ml Output Urine Total 400 ml 1350 ml Estimated Blood Loss 25 ml (Maggie Fuentes MD R1) Result Diagram: 08/10/17 0446 08/10/17445 Objective Remarks GENERAL: This is a well-nourished, well-developed patient, in no apparent distress. CARDIOVASCULAR: Regular rate and rhythm without murmurs, gallops, or rubs. RESPIRATORY: Clear to auscultation. Breath sounds equal bilaterally. No wheezes , rales, or rhonchi. GASTROINTESTINAL: Abdomen soft, non-tender, nondistended. No hepato-splenomegaly , or palpable masses. No guarding. MUSCULOSKELETAL: Extremities without clubbing, cyanosis, or edema. No joint tenderness, effusion, or edema noted. No calf tenderness. Negative Homans sign bilaterally. NEUROLOGICAL: Awake, alert, and oriented x 3. Cranial nerves II through XII intact. Motor and sensory wnl b/l. Saddle anesthesia noted. 5/5 in upper extremities. 4/5 in lower extremities. No foot drop noted. Reflexes 2+ in upper and lower extremities. No clonus noted. [id number] test normal. Negative pronator drift. Normal speech (Maggie Fuentes MD R1) A/P Assessment and Plan 36-year-old female presents to the ED with saddle anesthesia and urinary incontinence consistent with cauda equina syndrome. Neurosurgery consulted. Patient is POD#1 right L5 semi-laminectomy, resection large sequestered herniated nucleus pulposus. Discharge Planning Awaiting neurosurgery clearance Home with no PT recommended Anticipate discharge in 1-2 days (Maggie Fuentes MD R1) Attending Attestation Pt. examined independently and case discussed with resident physicians I have read the above note and agree with the assessment/plan as discussed with me I was involved in all medical decision making for this patient. Dustin Vazquez MD (Dustin Vazquez MD) Problem List: (1) Cauda equina syndrome ICD Codes: G83.4 - Cauda equina syndrome Status: Acute Plan: Patient presenting with cauda equina urinary incontinence. MRI lumbar spine without contrast on 08-06-17 demonstrates central disc protrusion at L5-S1 with central canal stenosis Neurosurgery consulted. Patient is POD#1 right L5 semi-laminectomy, resection large sequestered herniated nucleus pulposus. Home with no PT recommended (2) Nutrition, metabolism, and development symptoms ICD Codes: R63.8 - Other symptoms and signs concerning food and fluid intake Plan: Diet: Regular diet Fluids: P.o. hydration vitals q4h, monitor I &Os DVT ppx: SCDs PT and case management consulted (Maggie Fuentes MD R1) Maggie Fuentes MD R1 August 10, 2017 11:38 Dustin Vazquez MD August 10, 2017 12:55
[2017-08-10 12:00] VITALS: BP 105/56; PULSE 101; RESP 18; TEMP 98.4; O2SAT 94
--- NOTE | 2017-08-10 12:13 | HHI.NSPN ---
History Chief Complaint: numbness buttocks saddle area. Interval History 08/10/17: Pt awake and alert. She complains of saddle anesthesias unchanged from admission. She ambulated with PT today. No radiculopathy in LEs. She has some numbness on the bottom of the right foot. Review of Systems General: Negative for: fever, chills, insomnia Respiratory: Negative for: shortness of breath, cough, sputum Cardiovascular: Negative for: chest pain Gastrointestinal: Negative for: nausea, vomitting, diarrhea, constipation Exam Results Vital Signs Date Time Temp Pulse Resp B/P (MAP) Pulse Ox O2 Delivery O2 Flow Rate FiO2 08/10/17 08:00 98.4 97 18 122/61 (81) 96 08/09/17 20:00 21 08/09/17 17:45 Nasal Cannula 2 Intake and Output 08/10/17 08/10/17 08/11/17 08:00 16:00 00:00 Intake Total 981 ml Output Total 1350 ml Balance -369 ml Physical Examination General: Pt resting in bed in NAD. VSS. Eyes: Pupils equal. Sclera anicteric. Resp: CTA bilaterally Heart: NSR no murmurs Abd: Soft positive bs Skin: Pt log rolled and incision is clean and dry without signs of infection. Optifoam bandage in place. Muscle: Mild give away 4+/5 EHL weakness otherwise 5/5 strength in LEs. Neuro: Pt awake and alert. Follows commands well. Speech clear and appropriate. Pt complains of saddle anesthesia. Lab, Micro, Other Results Last Impressions Lumbar Spine X-Ray 08/09/17 0000 Signed Impressions: CONCLUSION: Level localizer at L5-S1. Laboratory Tests Test 08/10/17 04:46 White Blood Count 10.6 TH/MM3 Red Blood Count 4.23 MIL/MM3 Hemoglobin 11.4 GM/DL Hematocrit 34.0 % Mean Corpuscular Volume 80.4 FL Mean Corpuscular Hemoglobin 26.9 PG Mean Corpuscular Hemoglobin Concent 33.4 % Red Cell Distribution Width 14.3 % Platelet Count 240 TH/MM3 Mean Platelet Volume 8.8 FL Neutrophils (%) (Auto) 75.9 % Lymphocytes (%) (Auto) 15.2 % Monocytes (%) (Auto) 8.7 % Eosinophils (%) (Auto) 0.0 % Basophils (%) (Auto) 0.2 % Neutrophils # (Auto) 8.0 TH/MM3 Lymphocytes # (Auto) 1.6 TH/MM3 Monocytes # (Auto) 0.9 TH/MM3 Eosinophils # (Auto) 0.0 TH/MM3 Basophils # (Auto) 0.0 TH/MM3 CBC Comment DIFF FINAL Differential Comment Blood Urea Nitrogen 12 MG/DL Creatinine 0.55 MG/DL Random Glucose 99 MG/DL Calcium Level 8.6 MG/DL Sodium Level 141 MEQ/L Potassium Level 3.9 MEQ/L Chloride Level 111 MEQ/L Carbon Dioxide Level 22.8 MEQ/L Anion Gap 7 MEQ/L Estimat Glomerular Filtration Rate 126 ML/MIN Medical Decision Making Impression and Plan A: 36 y/o FM s/p right L5 semi-laminectomy, resection large sequestered herniated nucleus pulposus. P: Continue with PT Continue with post op care. Messi Olivares August 10, 2017 12:13 pm
[2017-08-10 16:00] VITALS: BP 106/58; PULSE 88; RESP 18; O2SAT 94
[2017-08-10 20:00] VITALS: BP 109/56; PULSE 91; RESP 18; TEMP 97.7; O2SAT 93
[2017-08-10] MEDS: SODIUM CHLORIDE 0.9% FLUSH 10 ML FLUSH IV FLUSH PRN (22:05)
[2017-08-11] VITALS (7 sets, daily range): BP systolic 93–112; BP diastolic 51–60; PULSE 81–102; RESP 15–18; TEMP 97.9–99; O2SAT 92–100
[2017-08-11] MEDS: ACETAMINOPHEN/HYDROcodone 325 MG/7.5 MG TAB PO PRN ×4 (01:45→21:11)
[2017-08-11 04:05] LABS: HEMATOCRIT 34.8 % (35.0-46.0); HEMOGLOBIN 11.5 GM/DL (11.6-15.3); MEAN CELL VOLUME 80.7 FL (80.0-100.0); MEAN CORPUSCULAR HEMOGLOBIN 26.7 PG (27.0-34.0); MEAN PLATELET VOLUME 8.2 FL (7.0-11.0); PLATELET COUNT 222 TH/MM3 (150-450); RED BLOOD COUNT 4.31 MIL/MM3 (4.00-5.30); RED CELL DISTRIBUTION WIDTH 14.2 % (11.6-17.2); WHITE BLOOD COUNT 8.6 TH/MM3 (4.0-11.0)
[2017-08-11 04:27] LABS: CALCIUM 8.5 MG/DL (8.5-10.1); CREATININE 0.54 MG/DL (0.50-1.00)
[2017-08-11] MEDS: MORPHINE SULFATE 4 MG/ML INJ IV PUSH PRN ×2 (05:53→13:48)
[2017-08-11] MEDS: SODIUM CHLORIDE 0.9% FLUSH 10 ML FLUSH IV FLUSH PRN (05:54)
[2017-08-11] MEDS: SODIUM CHLORIDE 0.9% FLUSH 10 ML FLUSH IV FLUSH SCH ×2 (09:35→21:11)
[2017-08-11] MEDS: DOCUSATE SODIUM 50 MG/SENNA 8.6 MG TAB PO SCH ×2 (09:35→21:10)
--- NOTE | 2017-08-11 09:37 | HHI.FPPN ---
Subjective Remarks No acute events overnight. Patient lying comfortably in bed. at bedside. Patient reports that she was dizzy upon standing this morning. Blood pressure 93/53. Satting at 92% on room air. She states that she is tolerating her diet well. She denies nausea vomiting. She has been passing gas but has not had a bowel movement. She was unable to urinate yesterday. Bladder scan showed 293 mls. Mann was inserted. She endorses saddle anesthesia. Also she endorses numbness bilaterally to her heels. Denies fevers, chest pain, shortness of breath, abdominal pain. (Maggie Fuentes MD R1) Objective Vitals Vital Signs Date Time Temp Pulse Resp B/P (MAP) Pulse Ox O2 Delivery O2 Flow Rate FiO2 08/11/17 08:00 97.9 81 15 93/53 (66) 92 08/11/17 04:00 98.1 92 18 95/58 (70) 95 08/11/17 00:00 97.9 88 18 98/51 (67) 96 08/10/17 20:00 97.7 91 18 109/56 (73) 93 08/10/17 16:00 88 18 106/58 (74) 94 08/10/17 12:00 98.4 101 18 105/56 (72) 94 I/O 08/10/17 08/10/17 08/10/17 08/11/17 08/11/17 08/11/17 07:00 15:00 23:00 07:00 15:00 23:00 Intake Total 981 ml 400 ml Output Total 1350 ml 600 ml Balance -369 ml -200 ml Intake IV Total 981 ml 400 ml Output Urine Total 1350 ml 600 ml Bladder Scan Volume Amount 293 ml (Maggie Fuentes MD R1) Result Diagram: 08/11/17 0350 08/11/17 0350 Objective Remarks GENERAL: This is a well-nourished, well-developed patient, in no apparent distress. CARDIOVASCULAR: Regular rate and rhythm without murmurs, gallops, or rubs. RESPIRATORY: Clear to auscultation. Breath sounds equal bilaterally. No wheezes , rales, or rhonchi. GASTROINTESTINAL: Abdomen soft, non-tender, nondistended. No hepato-splenomegaly , or palpable masses. No guarding. MUSCULOSKELETAL: Extremities without clubbing, cyanosis, or edema. No joint tenderness, effusion, or edema noted. No calf tenderness. Negative Homans sign bilaterally. NEUROLOGICAL: Awake, alert, and oriented x 3. Cranial nerves II through XII intact. Motor and sensory wnl b/l. Saddle anesthesia noted. 5/5 in upper extremities. 4/5 in lower extremities. No foot drop noted. Reflexes 2+ in upper and lower extremities. No clonus noted. Cwvoiu-ru-[id number] test normal. Negative pronator drift. Normal speech (Maggie Fuentes MD R1) A/P Assessment and Plan 36-year-old female presents to the ED with saddle anesthesia and urinary incontinence consistent with cauda equina syndrome. Neurosurgery consulted. Patient is POD#2 right L5 semi-laminectomy, resection large sequestered herniated nucleus pulposus. Discharge Planning Awaiting neurosurgery clearance Home with no PT recommended Front wheeled walker needed Anticipate discharge in 1-2 days (Maggie Fuentes MD R1) Attending Attestation Patient examined independently and case discussed with resident physicians I have read the above note and agree with the assessment/plan as discussed with me I was involved in all medical decision making for this patient Dustin Vazquez MD (Dustin Vazquez MD) Problem List: (1) Cauda equina syndrome ICD Codes: G83.4 - Cauda equina syndrome Status: Acute Plan: Patient presenting with cauda equina urinary incontinence. MRI lumbar spine without contrast on 08-06-17 demonstrates central disc protrusion at L5-S1 with central canal stenosis Neurosurgery consulted. Patient is POD#2 right L5 semi-laminectomy, resection large sequestered herniated nucleus pulposus. Home with no PT recommended Patient still endorses saddle anesthesia Mann catheter placed yesterday 08/10 due to bladder scan showing 293 mls, will re-try voiding trial today (2) Nutrition, metabolism, and development symptoms ICD Codes: R63.8 - Other symptoms and signs concerning food and fluid intake Plan: Diet: Regular diet Fluids: P.o. hydration vitals q4h, monitor I &Os DVT ppx: SCDs PT and case management consulted (Maggie Fuentes MD R1) Maggie Fuentes MD R1 August 11, 2017 09:37 Dustin Vazquez MD August 11, 2017 13:03
[2017-08-11] MEDS ORDERED: WALKER WHEELS/F1 MIS (09:38)
[2017-08-11] MEDS ORDERED: SODIUM CHLORID 0.9% 500 ML INJ 500 ML IV ONE (09:45)
[2017-08-11] MEDS: LACTULOSE SYRUP 20 GM/30 ML CUP PO PRN (11:31)
--- NOTE | 2017-08-11 12:02 | HHI.NSPN ---
History Chief Complaint: Back pain at incision Interval History 08/09: 36-year-old female presented to the emergency room early on the morning of 08/09/2017 with complaint of chronic back pain with acute onset of severe spasm when she try to get out of bed just prior to her emergency room visit. She states that the severe low back pain with some radiation to the right lower extremity started approximately 10 days ago. She had no numbness in the pelvic region or lower extremities until early this morning. She was given Toradol and Norflex and dexamethasone in the emergency room earlier this morning with significant improvement in her pain symptoms. She was released home for follow- up with her primary care physician who had previously obtained an MRI of the lumbar spine on 08/06/2017. The patient returned to the emergency room later this morning with complaint of recurrent severe low back pain with numbness around the pelvic region and lower extremity weakness and bladder incontinence which she states started earlier in the morning. 08/10/17: Pt awake and alert. She complains of saddle anesthesias unchanged from admission. She ambulated with PT today. No radiculopathy in LEs. She has some numbness on the bottom of the right foot. This practitioner acts as a scribe for this note. 08/11: The patient is awake in bed. She endorses pain to the lumbar surgical incision. Her pelvic numbness and tingling is the same as before surgery but it has improved to the legs. She reports that she had some dizziness this morning and the Nurse stated her blood pressure was low. The patient has been up and walking with assistance. Nursing and the patient report that the Mann catheter was removed and had to subsequently be replaced due to an inability to know when she needed to void and urinary retention. Exam Results 08/09/17 08/09/17 08/10/17 08/10/17 08/11/17 08/11/17 06:00 18:00 06:00 18:00 06:00 18:00 Intake Total 2200 ml 981 ml 400 ml 500 ml Output Total 425 ml 1350 ml 600 ml Balance 1775 ml -369 ml -200 ml 500 ml Intake IV Total 0 ml 981 ml 400 ml 500 ml Other 2200 ml Output Urine Total 400 ml 1350 ml 600 ml Estimated Blood Loss 25 ml Bladder Scan Volume Amount 293 ml Vital Signs Date Time Temp Pulse Resp B/P (MAP) Pulse Ox O2 Delivery O2 Flow Rate FiO2 08/11/17 08:00 97.9 81 15 93/53 (66) 92 08/11/17 04:00 98.1 92 18 95/58 (70) 95 08/11/17 00:00 97.9 88 18 98/51 (67) 96 08/10/17 20:00 97.7 91 18 109/56 (73) 93 08/10/17 16:00 88 18 106/58 (74) 94 08/10/17 12:00 98.4 101 18 105/56 (72) 94 08/10/17 08:00 98.4 97 18 122/61 (81) 96 08/10/17 04:00 98.3 94 18 106/67 (80) 98 08/10/17 00:00 98.8 99 18 111/55 (73) 95 08/09/17 20:00 98.2 98 18 139/63 (88) 94 08/09/17 20:00 98 21 08/09/17 17:45 98.7 96 15 129/75 (93) 99 Nasal Cannula 2 08/09/17 17:30 97 13 131/71 (91) 95 Nasal Cannula 2 08/09/17 17:15 101 18 124/67 (86) 98 Nasal Cannula 2 08/09/17 17:00 102 16 124/66 (85) 97 Nasal Cannula 2 08/09/17 16:51 98.6 111 16 116/62 (80) 97 Nasal Cannula 2 08/09/17 12:18 97.6 102 18 112/63 (79) 97 08/09/17 10:36 (85) 08/09/17 09:30 16 08/09/17 09:16 108 18 121/68 (85) 98 Room Air 08/09/17 07:56 97.8 118 20 129/81 (97) 96 Lab, Micro, Other Results Recent Impressions Lumbar Spine X-Ray 08/09/17 0000 Signed Impressions: CONCLUSION: Level localizer at L5-S1. Laboratory Tests Test 08/09/17 08:05 5/27/18 10:30 08/10/17 04:46 08/11/17 03:50 White Blood Count 9.4 TH/MM3 10.6 TH/MM3 8.6 TH/MM3 Red Blood Count 5.01 MIL/MM3 4.23 MIL/MM3 4.31 MIL/MM3 Hemoglobin 13.2 GM/DL 11.4 GM/DL 11.5 GM/DL Hematocrit 40.1 % 34.0 % 34.8 % Mean Corpuscular Volume 80.1 FL 80.4 FL 80.7 FL Mean Corpuscular Hemoglobin 26.5 PG 26.9 PG 26.7 PG Mean Corpuscular Hemoglobin Concent 33.0 % 33.4 % 33.0 % Red Cell Distribution Width 13.7 % 14.3 % 14.2 % Platelet Count 268 TH/MM3 240 TH/MM3 222 TH/MM3 Mean Platelet Volume 8.5 FL 8.8 FL 8.2 FL Neutrophils (%) (Auto) 94.4 % 75.9 % Lymphocytes (%) (Auto) 4.6 % 15.2 % Monocytes (%) (Auto) 0.8 % 8.7 % Eosinophils (%) (Auto) 0.0 % 0.0 % Basophils (%) (Auto) 0.2 % 0.2 % Neutrophils # (Auto) 8.9 TH/MM3 8.0 TH/MM3 Lymphocytes # (Auto) 0.4 TH/MM3 1.6 TH/MM3 Monocytes # (Auto) 0.1 TH/MM3 0.9 TH/MM3 Eosinophils # (Auto) 0.0 TH/MM3 0.0 TH/MM3 Basophils # (Auto) 0.0 TH/MM3 0.0 TH/MM3 CBC Comment DIFF FINAL DIFF FINAL Differential Comment Blood Urea Nitrogen 17 MG/DL 12 MG/DL 13 MG/DL Creatinine 0.69 MG/DL 0.55 MG/DL 0.54 MG/DL Random Glucose 140 MG/DL 99 MG/DL 102 MG/DL Calcium Level 9.4 MG/DL 8.6 MG/DL 8.5 MG/DL Sodium Level 139 MEQ/L 141 MEQ/L 141 MEQ/L Potassium Level 3.9 MEQ/L 3.9 MEQ/L 3.8 MEQ/L Chloride Level 110 MEQ/L 111 MEQ/L 108 MEQ/L Carbon Dioxide Level 21.3 MEQ/L 22.8 MEQ/L 23.0 MEQ/L Anion Gap 8 MEQ/L 7 MEQ/L 10 MEQ/L Estimat Glomerular Filtration Rate 97 ML/MIN 126 ML/MIN 128 ML/MIN Urine Color YELLOW Urine Turbidity CLEAR Urine pH 6.5 Urine Specific [place] 1.011 Urine Protein NEG mg/dL Urine Glucose (UA) NEG mg/dL Urine Ketones 10 mg/dL Urine Occult Blood NEG Urine Nitrite NEG Urine Bilirubin NEG Urine Urobilinogen LESS THAN 2.0 MG/DL Urine Leukocyte Esterase NEG Urine RBC 1 /hpf Urine WBC LESS THAN 1 /hpf Urine Squamous Epithelial Cells 1 /hpf Microscopic Urinalysis Comment CULT NOT INDICATED Medical Decision Making Impression and Plan Impression: 1. Large sequestered L5-S1 herniated nucleus pulposus with severe canal stenosis 2. History and findings suggestive of onset cauda equina syndrome this morning. Postoperative Diagnosis: (1) Herniated nucleus pulposus, lumbar (2) Cauda equina syndrome 1. Large L5-S1 herniated nucleus pu POD #2 () s/p: Right L5 semi-laminectomy, resection large sequestered herniated nucleus pulposus Plan: Findings discussed with the patient & . Neuro checks. MRI lumbar spine today. Urology consult. 500 mL bolus w/NS. Romeo Avery August 11, 2017 12:02
[2017-08-11] MEDS ORDERED: GADODIAMIDE PF 287 MG/ML 5 ML VIAL (for RAD MRI) IV PUSH ONE (14:00)
--- NOTE | 2017-08-11 15:13 | MB ---
cc: Juan Medina DO DATE: 08/11/2017 HISTORY OF PRESENT ILLNESS: Ms. Reeves is a pleasant 36-year-old female who was admitted on 08/09/2017 with findings of cauda equina syndrome. She had saddle anesthesia with numbness of her lower extremities. She reports an approximately 3-4 month history of low back pain with at times, numbness. She woke up with severe leg pain and back pain on 08/09/2017 and was unable to get out of bed, which was a reason for her emergency room visit. The patient underwent right L5 semi laminectomy with resection of large sequestered herniated nucleus pulposus by Dr. Guadalupe. She has been doing well postoperatively overall, however, she went into urinary retention the day after the Mann catheter was removed. Prior to this admission, she denies any problems with urination or incomplete bladder emptying or urinary tract infections. ALLERGIES: SHE IS ALLERGIC TO PENICILLIN. PAST MEDICAL HISTORY: Denies any significant medical history. PAST SURGICAL HISTORY: Noted for a , as well as a recent L5 laminectomy. MEDICATIONS: Please refer to the chart. SOCIAL HISTORY: Denies any drinking, smoking or using drugs. FAMILY HISTORY: Denies any malignancies. PHYSICAL EXAMINATION: VITAL SIGNS: Temperature 97.9, heart rate 102, respiratory rate 15, 109/60 blood pressure, 100% on room air. GENERAL: She is a well-developed, well-nourished, 36-year-old female in no acute distress. HEENT: Normocephalic, atraumatic. Pupils equal, round, regular, and reactive to light. Extraocular movements intact. NECK: Supple. HEART: Regular rate and rhythm. LUNGS: Clear. ABDOMEN: Soft, nontender, nondistended. Mann catheter is in place. She does have some loss of sensation or numbness over the lower buttock region and involving the L5 nerve root. EXTREMITIES: Show no evidence of cyanosis, clubbing, or edema. LABORATORY DATA: White count 8.6, hemoglobin 11.5, hematocrit 34.8, platelet count of 222. Sodium 141, potassium 3.8, chloride 108, CO2 23, BUN of 13, creatinine 0.54 and glucose of 102. Urinalysis is negative. ASSESSMENT AND PLAN: A 36-year-old female admitted with cauda equina syndrome, status post L5 laminectomy with decompression now with urinary retention. I would recommend leaving the Mann catheter in for now. Wean narcotics as appropriate. Continue with rehabilitation and once the patient is ambulating and pain has improved, would recommend a void trial. This can be performed on an outpatient basis in approximately 7-10 days. If unsuccessful, the patient would be started on clean intermittent catheterization until her bladder function returns in total. Thank you for the consult and allowing me to participate in the care of this patient. DO NELSON Morales/SABAS , 02:50 PM , 03:12 PM
--- NOTE | 2017-08-11 16:33 | RADRPT ---
EXAM DATE: 08/11/2017 4:17 PM EDT AGE/SEX: 36 years / Female INDICATIONS: Hematoma. Back pain post back surgery on L5-S1 on 08/08/2017. CLINICAL DATA: This is the patient's initial encounter. Patient reports that signs and symptoms have been present for 3 days and indicates a pain score of 7/10. MEDICAL/SURGICAL HISTORY: None. section. Ablation and lumbar surgery. COMPARISON: No prior [facility] exams available for comparison. TECHNIQUE: Multiplanar, multisequence MRI examination of the lumbar spine was performed without and with 15 ml Omniscan (gadodiamide) contrast as a single exam dose. FINDINGS: The most caudal-appearing lumbar vertebra is numbered as L5. VERTEBRAE: Bone marrow signal is within normal limits. Vertebral body height is maintained. There is no anterolisthesis or retrolisthesis. CONUS: Normal level and configuration. T12-L1: No disc herniation, canal stenosis, or neural foraminal stenosis. L1-L2: No disc herniation, canal stenosis, or neural foraminal stenosis. L2-L3: No disc herniation, canal stenosis, or neural foraminal stenosis. L3-L4: No disc herniation, canal stenosis, or neural foraminal stenosis. L4-L5: No disc herniation, canal stenosis, or neural foraminal stenosis. L5-S1: There is disc desiccation with mild decreased disc height. Right hemilaminectomy was performe d at this level. There is a moderate size central disc protrusion with abutment of the S1 nerve roots in the lateral recesses. There is also mild mass effect on the thecal sac. No significant spinal can al stenosis or neural foraminal stenosis is present. There is edema in the posterior paraspinal muscu lature on the right. Post contrast: There is mild enhancement at the right hemilaminectomy site and there is mild enhancem ent along the periphery of the central disc protrusion at L5-S1. Other: The visualized surrounding structures demonstrate no acute abnormality. CONCLUSION: 1. No hematoma is identified, as questioned. There is a central disc protrusion at the L5-S1 level w hich abuts the S1 nerve roots in the lateral recesses. 2. No significant spinal canal stenosis or neural foraminal narrowing is visualized. Electronically signed by: Dylan Yusuf MD 08/11/2017 4:32 PM EDT
[2017-08-12] VITALS: BP 104/52; PULSE 103; RESP 18; TEMP 98.3; O2SAT 92
[2017-08-12 04:00] VITALS: BP 101/57; PULSE 87; RESP 18; TEMP 97.8; O2SAT 98
[2017-08-12] MEDS ORDERED: SODIUM CHLOR 0.9% 1000 ML INJ 1,000 ML IV ONE (05:45)
[2017-08-12 06:34] LABS: HEMATOCRIT 35.6 % (35.0-46.0); HEMOGLOBIN 11.8 GM/DL (11.6-15.3); MEAN CELL VOLUME 80.6 FL (80.0-100.0); MEAN CORPUSCULAR HEMOGLOBIN 26.7 PG (27.0-34.0); MEAN CORPUSCULAR HGB CONC 33.1 % (32.0-36.0); MEAN PLATELET VOLUME 8.1 FL (7.0-11.0); PLATELET COUNT 236 TH/MM3 (150-450); RED BLOOD COUNT 4.42 MIL/MM3 (4.00-5.30); WHITE BLOOD COUNT 6.9 TH/MM3 (4.0-11.0)
[2017-08-12 06:44] LABS: BICARBONATE 26.4 MEQ/L (21.0-32.0); CALCIUM 8.9 MG/DL (8.5-10.1); CREATININE 0.55 MG/DL (0.50-1.00)
[2017-08-12 08:03] VITALS: BP 110/58; PULSE 88; RESP 18; TEMP 98.4; O2SAT 98
[2017-08-12] MEDS: ACETAMINOPHEN/HYDROcodone 325 MG/7.5 MG TAB PO PRN ×3 (09:25→22:35)
[2017-08-12] MEDS: DOCUSATE SODIUM 50 MG/SENNA 8.6 MG TAB PO SCH ×2 (09:25→22:35)
[2017-08-12] MEDS: SODIUM CHLORIDE 0.9% FLUSH 10 ML FLUSH IV FLUSH SCH ×2 (09:26→22:35)
--- NOTE | 2017-08-12 09:59 | HHI.FPPN ---
Subjective Remarks Patient is doing okay this morning, she still has numbness in her pelvic area, but the pain in her back is well controlled on medication. She is eating well with no nausea, no fever or chills. She understands that she would have to go home with the Mann catheter. (Jaqueline Little MD R2) Objective Vitals Vital Signs Date Time Temp Pulse Resp B/P (MAP) Pulse Ox O2 Delivery O2 Flow Rate FiO2 08/12/17 08:03 98.4 88 18 110/58 (75) 98 08/12/17 04:00 97.8 87 18 101/57 (72) 98 08/12/17 00:00 98.3 103 18 104/52 (69) 92 08/11/17 20:00 98.3 93 18 100/58 (72) 95 08/11/17 17:34 16 08/11/17 16:00 99.0 96 16 112/60 (77) 93 08/11/17 13:54 16 08/11/17 12:00 97.9 102 15 109/60 (76) 100 I/O 08/11/17 08/11/17 08/11/17 08/12/17 08/12/17 08/12/17 06:59 14:59 22:59 06:59 14:59 22:59 Intake Total 500 ml 700 ml 1000 ml Output Total 1300 ml 900 ml Balance 500 ml -600 ml 100 ml Intake Oral 700 ml IV Total 500 ml 1000 ml Output Urine Total 1300 ml 900 ml (Jaqueline Little MD R2) Result Diagram: 08/12/17 0616 08/12/17 0616 Imaging Last Impressions Lumbar Spine MRI 08/11/17 0000 Signed Impressions: CONCLUSION: 1. No hematoma is identified, as questioned. There is a central disc protrusio n at the L5-S1 level which abuts the S1 nerve roots in the lateral recesses. 2. No significant spinal canal stenosis or neural foraminal narrowing is visua lized. Lumbar Spine X-Ray 08/09/17 0000 Signed Impressions: CONCLUSION: Level localizer at L5-S1. Objective Remarks GENERAL: This is a well-nourished, well-developed patient, in no apparent distress. CARDIOVASCULAR: Regular rate and rhythm without murmurs, gallops, or rubs. RESPIRATORY: Clear to auscultation. Breath sounds equal bilaterally. No wheezes , rales, or rhonchi. GASTROINTESTINAL: Abdomen soft, non-tender, nondistended. No guarding. MUSCULOSKELETAL: Extremities without clubbing, cyanosis, or edema. NEUROLOGICAL: Awake, alert, and oriented x 3. Cranial nerves II through XII intact. Motor and sensory wnl b/l. Saddle anesthesia noted but improved from prior exam. 5/5 in upper extremities. 5/5 in lower extremities. Sensation intact in lower extremities. No foot drop noted. Normal speech (Jaqueline Little MD R2) Urinary Catheter: Yes Assessment to: Continue Mann insert reason: Obstruction/Retention Date of Insertion: August 09, 2017 (Jaqueline Little MD R2) A/P Assessment and Plan 36-year-old female presented to the ED with saddle anesthesia and urinary incontinence consistent with cauda equina syndrome. Neurosurgery consulted. Patient is POD#3 right L5 semi-laminectomy, resection large sequestered herniated nucleus pulposus. Discharge Planning Awaiting neurosurgery clearance Home with no PT recommended Front wheeled walker provided by case management Anticipate discharge soon (Jaqueline Little MD R2) Attending Attestation Patient examined independently and case discussed with resident physicians I have read the above note and agree with the assessment/plan as discussed with me I was involved in all medical decision making for this patient Dustin Vazquez MD (Dustin Vazquez MD) Problem List: (1) Cauda equina syndrome ICD Codes: G83.4 - Cauda equina syndrome Status: Acute Plan: Patient presented with cauda equina urinary incontinence. MRI lumbar spine without contrast on 08-06-17 demonstrates central disc protrusion at L5-S1 with central canal stenosis Neurosurgery on board * Patient is POD#3 right L5 semi-laminectomy, resection large sequestered herniated nucleus pulposus. Patient still endorses saddle anesthesia but improving Mann catheter placed on 08/10 - to continue per urology * Voiding trial to be performed as an outpatient in 7-10 days * Follow up with urology Patient to try walking today and sit in a chair as much as possible * Stimulate bowel movement Lumbar spine MRI on 08/11/2017 1. No hematoma is identified, as questioned. There is a central disc protrusion at the L5-S1 level which abuts the S1 nerve roots in the lateral recesses. 2. No significant spinal canal stenosis or neural foraminal narrowing is visualized. (2) Nutrition, metabolism, and development symptoms ICD Codes: R63.8 - Other symptoms and signs concerning food and fluid intake Plan: Diet: Regular diet Fluids: P.o. hydration vitals q4h, monitor I &Os DVT ppx: SCDs PT and case management on board Seen and examined with Alyssa Bojorquez, MS-4 (Jaqueline Little MD R2) Jaqueline Little MD R2 August 12, 2017 09:59 Dustin Vazquez MD August 12, 2017 16:17
[2017-08-12 12:06] VITALS: BP 110/64; PULSE 103; RESP 18; TEMP 97; O2SAT 95
[2017-08-12] MEDS ORDERED: HYDR-3580 PO (13:01)
--- NOTE | 2017-08-12 13:02 | HHI.DCPOC ---
Discharge Care Plan Diagnosis: (1) Cauda equina syndrome (2) Herniated nucleus pulposus, lumbar Goals to Promote Your Health * To prevent worsening of your condition and complications * To maintain your health at the optimal level Directions to Meet Your Goals Take your medications as prescribed Follow your dietary instruction Follow activity as directed Keep your appointments as scheduled Take your immunizations and boosters as scheduled If your symptoms worsen call your PCP, if no PCP go to Urgent Care Center or Emergency Room Smoking is Dangerous to Your Health. Avoid second hand smoke Call the 24-hour hour crisis hotline for domestic abuse at Jaqueline Little MD R2 August 12, 2017 13:02
--- NOTE | 2017-08-12 13:29 | HHI.PR ---
Subjective Patient symptoms today Pt seen and examined. Feels well. No BM. Urine clear. Objective Vital Signs Vital Signs Date Time Temp Pulse Resp B/P (MAP) Pulse Ox O2 Delivery O2 Flow Rate FiO2 08/12/17 12:06 97.0 103 18 110/64 (79) 95 08/12/17 08:03 98.4 88 18 110/58 (75) 98 08/12/17 04:00 97.8 87 18 101/57 (72) 98 08/12/17 00:00 98.3 103 18 104/52 (69) 92 08/11/17 20:00 98.3 93 18 100/58 (72) 95 08/11/17 17:34 16 08/11/17 16:00 99.0 96 16 112/60 (77) 93 08/11/17 13:54 16 Intake & Output 08/12/17 08/12/17 07:00 19:00 Intake Total 1000 ml Output Total 900 ml 750 ml Balance 100 ml -750 ml IV Total 1000 ml Output Urine Total 900 ml 750 ml Result Diagram: 08/12/1716 08/12/17 0616 Objective Remarks Abd:soft,nt,nd [place] with clear urine Medications and IVs Current Medications Medications (Trade) Dose Ordered Sig/Caryn Route Start Time Stop Time Status Last Admin (NS Flush) 2 ml UNSCH PRN IV FLUSH 08/09/17 09:30 08/11/17 05:54 (NS Flush) 2 ml BID IV FLUSH 08/09/17 09:30 08/12/17 09:26 (Zofran Odt) 4 mg Q6H PRN PO 08/09/17 10:15 08/10/17 02:22 ([place] 5-325 Mg) 1 tab Q4H PRN PO 08/09/17 10:00 ([place] 7.5-325 Mg) 1 tab Q4H PRN PO 08/09/17 10:00 08/12/17 09:25 (Morphine Inj) 4 mg Q3H PRN IV PUSH 08/09/17 10:15 08/11/17 13:48 ([place]-Colace) 1 tab BID PO 08/09/17 10:00 08/12/17 09:25 (Milk Of Magnesia Liq) 30 ml Q12H PRN PO 08/09/17 10:00 (Senokot) 17.2 mg Q12H PRN PO 08/09/17 10:00 08/11/17 21:10 (Dulcolax Supp) 10 mg DAILY PRN RECTAL 08/09/17 10:00 (Lactulose Liq) 30 ml DAILY PRN PO 08/09/17 10:00 08/11/17 11:31 Lactated Ringer's 1,000 ml @ 30 mls/hr Q24H PRN IV 08/09/17 13:45 08/12/17 13:44 Sodium Chloride 500 ml @ 30 mls/hr [id number] PRN IV 08/09/17 13:45 08/12/17 13:44 (Lopressor) 25 mg HEAD OF [employer]CHAND[employer] PRN PO 08/09/17 13:45 08/12/17 13:44 (Betadine 5% Antisepsis Kit) 1 applic HEAD [employer] PRN EACH NARE 08/09/17 13:45 08/12/17 13:44 (Chlorhexidine 2% Cloth) 3 pack [employer] PRN TOPICAL 08/09/17 13:45 08/12/17 13:44 Assessment and Plan Assessment and Plan Stable s/p L5 laminectomy with AUR Maintain penn for now Void trial next week as outpt. May need to institute CIC at that time. Juan Medina DO August 12, 2017 13:29
[2017-08-12 16:20] VITALS: BP 109/58; PULSE 112; RESP 18; TEMP 97.8; O2SAT 99
[2017-08-12] MEDS: LACTULOSE SYRUP 20 GM/30 ML CUP PO PRN (18:22)
[2017-08-12 20:00] VITALS: BP 151/76; PULSE 98; RESP 18; TEMP 98.4; O2SAT 98
--- NOTE | 2017-08-12 23:33 | HHI.NSPN ---
History Chief Complaint: Back pain at incision Exam Results Vital Signs Date Time Temp Pulse Resp B/P (MAP) Pulse Ox O2 Delivery O2 Flow Rate FiO2 08/12/17 20:00 98.4 98 18 151/76 (101) 98 08/11/17 09:50 21 08/09/17 17:45 Nasal Cannula 2 Intake and Output 08/12/17 08/12/17 08/13/17 08:00 16:00 00:00 Intake Total 1000 ml Output Total 900 ml 750 ml Balance 100 ml -750 ml Medical Decision Making Impression and Plan LE and saddle numbness better today continue pt,Shady Zepeda MD August 12, 2017 23:33
[2017-08-13] VITALS: BP 106/61; PULSE 93; RESP 18; TEMP 97.9; O2SAT 94
[2017-08-13 04:00] VITALS: BP 110/58; PULSE 88; RESP 18; TEMP 97.7; O2SAT 98
[2017-08-13 07:03] LABS: HEMATOCRIT 37.3 % (35.0-46.0); HEMOGLOBIN 12.4 GM/DL (11.6-15.3); MEAN CELL VOLUME 81.1 FL (80.0-100.0); MEAN CORPUSCULAR HGB CONC 33.2 % (32.0-36.0); MEAN PLATELET VOLUME 8.4 FL (7.0-11.0); PLATELET COUNT 257 TH/MM3 (150-450); RED BLOOD COUNT 4.59 MIL/MM3 (4.00-5.30); WHITE BLOOD COUNT 8.2 TH/MM3 (4.0-11.0)
[2017-08-13 07:16] LABS: BICARBONATE 23.4 MEQ/L (21.0-32.0); CALCIUM 9.2 MG/DL (8.5-10.1); CREATININE 0.54 MG/DL (0.50-1.00)
--- NOTE | 2017-08-13 08:17 | HHI.FPPN ---
Subjective Remarks Patient is doing better this morning. She walked the hallways with a walker twice and sat in the chair most of the day. She ate a lot of food yesterday and is incontinent of gas but still has not had a bowel movement. No fever or chills. Patient would like to go home today. (Jaqueline Little MD R2) Objective Vitals Vital Signs Date Time Temp Pulse Resp B/P (MAP) Pulse Ox O2 Delivery O2 Flow Rate FiO2 08/13/17 04:00 97.7 88 18 110/58 (75) 98 08/13/17 00:00 97.9 93 18 106/61 (76) 94 08/12/17 20:00 98.4 98 18 151/76 (101) 98 08/12/17 16:20 97.8 112 18 109/58 (75) 99 08/12/17 12:06 97.0 103 18 110/64 (79) 95 I/O 08/12/17 08/12/17 08/12/17 08/13/17 08/13/17 08/13/17 07:00 15:00 23:00 07:00 15:00 23:00 Intake Total 1000 ml Output Total 900 ml 750 ml 450 ml Balance 100 ml -750 ml -450 ml IV Total 1000 ml Output Urine Total 900 ml 750 ml 450 ml (Jaqueline Little MD R2) Result Diagram: 08/13/17 0558 08/13/17 0558 Objective Remarks GENERAL: This is a well-nourished, well-developed patient, in no apparent distress. CARDIOVASCULAR: Regular rate and rhythm without murmurs, gallops, or rubs. RESPIRATORY: Clear to auscultation. Breath sounds equal bilaterally. No wheezes , rales, or rhonchi. GASTROINTESTINAL: Abdomen soft, non-tender, nondistended. No guarding. MUSCULOSKELETAL: Extremities without clubbing, cyanosis, or edema. NEUROLOGICAL: Awake, alert, and oriented x 3. Cranial nerves II through XII intact. Motor and sensory wnl b/l. Saddle anesthesia still present. 5/5 in upper extremities. 5/5 in lower extremities. Sensation intact in lower extremities. No foot drop noted. Normal speech (Jaqueline Little MD R2) Date of Insertion: August 09, 2017 (Jaqueline Little MD R2) A/P Assessment and Plan 36-year-old female presented to the ED with saddle anesthesia and urinary incontinence consistent with cauda equina syndrome. Neurosurgery consulted. Patient is POD#4 right L5 semi-laminectomy, resection large sequestered herniated nucleus pulposus. Discharge Planning Awaiting neurosurgery clearance Home with no PT recommended Front wheeled walker provided by case management Anticipate discharge today or tomorrow (Jaqueline Little MD R2) Attending Attestation Patient examined independently and case discussed with resident physician I have read the above note and agree with the assessment/plan as discussed with me I was involved in all medical decision making for this patient Dustin Vazquez MD (Dustin Vazquez MD) Problem List: (1) Cauda equina syndrome ICD Codes: G83.4 - Cauda equina syndrome Status: Acute Plan: Patient presented with cauda equina urinary incontinence. MRI lumbar spine without contrast on 08-06-17 demonstrates central disc protrusion at L5-S1 with central canal stenosis Neurosurgery on board * Patient is POD#4 right L5 semi-laminectomy, resection large sequestered herniated nucleus pulposus. Patient still endorses saddle anesthesia Mann catheter placed on 08/10 - to continue per urology * Voiding trial to be performed as an outpatient next week * Follow up with urology Patient to continue walking today and will sit in a chair as much as possible Lumbar spine MRI on 08/11/2017 1. No hematoma is identified, as questioned. There is a central disc protrusion at the L5-S1 level which abuts the S1 nerve roots in the lateral recesses. 2. No significant spinal canal stenosis or neural foraminal narrowing is visualized. (2) Nutrition, metabolism, and development symptoms ICD Codes: R63.8 - Other symptoms and signs concerning food and fluid intake Plan: Diet: Regular diet Fluids: P.o. hydration vitals q4h, monitor I &Os DVT ppx: SCDs PT and case management on board (Jaqueline Little MD R2) Jaqueline Little MD R2 August 13, 2017 08:17 Dustin Vazquez MD August 13, 2017 13:52
[2017-08-13 08:19] VITALS: BP 112/65; PULSE 93; RESP 20; TEMP 97.8; O2SAT 97
[2017-08-13] MEDS: LACTULOSE SYRUP 20 GM/30 ML CUP PO PRN (08:46)
[2017-08-13] MEDS: SODIUM CHLORIDE 0.9% FLUSH 10 ML FLUSH IV FLUSH SCH (08:46)
[2017-08-13] MEDS: DOCUSATE SODIUM 50 MG/SENNA 8.6 MG TAB PO SCH (08:46)
--- NOTE | 2017-08-13 10:51 | HHI.PR ---
Subjective Patient symptoms today Pt seen and examined. No BM as of yet. Objective Vital Signs Vital Signs Date Time Temp Pulse Resp B/P (MAP) Pulse Ox O2 Delivery O2 Flow Rate FiO2 08/13/17 08:19 97.8 93 20 112/65 (81) 97 08/13/17 04:00 97.7 88 18 110/58 (75) 98 08/13/17 00:00 97.9 93 18 106/61 (76) 94 08/12/17 20:00 98.4 98 18 151/76 (101) 98 08/12/17 16:20 97.8 112 18 109/58 (75) 99 08/12/17 12:06 97.0 103 18 110/64 (79) 95 Intake & Output 08/13/17 08/13/17 07:00 19:00 Output Total 450 ml Balance -450 ml Output Urine Total 450 ml Result Diagram: 08/13/17 0558 08/13/1758 Objective Remarks Abd:soft,nt,nd Penn with clear urine 08/13 Abd:soft,nt,nd Penn with clear urine Medications and IVs Current Medications Medications (Trade) Dose Ordered Sig/Caryn Route Start Time Stop Time Status Last Admin (NS Flush) 2 ml UNSCH PRN IV FLUSH 08/09/17 09:30 08/11/17 05:54 (NS Flush) 2 ml BID IV FLUSH 08/09/17 09:30 08/13/17 08:46 (Zofran Odt) 4 mg Q6H PRN PO 08/09/17 10:15 08/10/17 02:22 ([place] 5-325 Mg) 1 tab Q4H PRN PO 08/09/17 10:00 ([place] 7.5-325 Mg) 1 tab Q4H PRN PO 08/09/17 10:00 08/12/17 22:35 (Morphine Inj) 4 mg Q3H PRN IV PUSH 08/09/17 10:15 08/11/17 13:48 ([place]-Colace) 1 tab BID PO 08/09/17 10:00 08/13/17 08:46 (Milk Of Magnesia Liq) 30 ml Q12H PRN PO 08/09/17 10:00 08/12/17 22:35 (Senokot) 17.2 mg Q12H PRN PO 08/09/17 10:00 08/11/17 21:10 (Dulcolax Supp) 10 mg DAILY PRN RECTAL 08/09/17 10:00 (Lactulose Liq) 30 ml DAILY PRN PO 08/09/17 10:00 08/13/17 08:46 Assessment and Plan Assessment and Plan Stable s/p L5 laminectomy with AUR Maintain penn for now Void trial next week as outpt. May need to institute CIC at that time. 08/13 Stable s/p L5 laminectomy with AUR Maintain penn for now Void trial next week as outpt. Juan Medina DO August 13, 2017 10:51
[2017-08-13 11:15] VITALS: BP 114/56; PULSE 103; RESP 20; TEMP 97.9; O2SAT 91
[2017-08-13] MEDS ORDERED: HYDR-3516 PO (14:49)
[2017-08-13] MEDS ORDERED: PERI PO (14:49)
--- NOTE | 2017-08-13 16:15 | HHI.DS ---
Discharge Summary Admission Date August 09, 2017 at 09:17 Discharge Date: August 13, 2017 Admitting Diagnosis Cauda equina syndrome (1) Cauda equina syndrome Diagnosis: Principal ICD Codes: G83.4 - Cauda equina syndrome Status: Acute Brief History 36-year-old female presenting to the emergency department with relatively acute onset severe low back pain with radicular symptoms and urinary incontinence. She has a history of chronic back pain for several months but started having radicular symptoms approximately 2 weeks ago. She presented to the emergency department with acute onset numbness around her pelvis and urinary incontinence. 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 She did not receive any relief with oral corticosteroids, Toradol, Norflex, or dexamethasone injection. She was seen by neurosurgery who plans to take her to the operating room for emergent decompression of the L5-S1 protruding disc. CBC/BMP: 08/13/17 0558 08/13/17 0558 Significant Findings Laboratory Tests Test 08/11/17 03:50 08/12/17 06:16 08/13/17 05:58 Hemoglobin 11.5 GM/DL (11.6-15.3) Hematocrit 34.8 % (35.0-46.0) Mean Corpuscular Hemoglobin 26.7 PG (27.0-34.0) 26.7 PG (27.0-34.0) Chloride Level 108 MEQ/L (98-107) 108 MEQ/L (98-107) Random Glucose 107 MG/DL (74-106) PE at Discharge GENERAL: This is a well-nourished, well-developed patient, in no apparent distress. CARDIOVASCULAR: Regular rate and rhythm without murmurs, gallops, or rubs. RESPIRATORY: Clear to auscultation. Breath sounds equal bilaterally. No wheezes , rales, or rhonchi. GASTROINTESTINAL: Abdomen soft, non-tender, nondistended. No guarding. MUSCULOSKELETAL: Extremities without clubbing, cyanosis, or edema. NEUROLOGICAL: Awake, alert, and oriented x 3. Cranial nerves II through XII intact. Motor and sensory wnl b/l. Saddle anesthesia still present. 5/5 in upper extremities. 5/5 in lower extremities. Sensation intact in lower extremities. No foot drop noted. Normal speech Hospital Course 36-year-old female presented to the ED with saddle anesthesia and urinary incontinence consistent with cauda equina syndrome. Neurosurgery was consulted and performed a right L5 semi-laminectomy, resection large sequestered herniated nucleus pulposus. Patient did well during her hospital stay although she continued to have saddle anesthesia and urinary incontinence. Mann catheter was placed with voiding trial to be performed with urology as an outpatient. At the time of discharge, patient had not yet had a bowel movement but was deemed safe for discharge home as long as she took a stool softener daily with her pain medications and reported to the ED with any symptoms of abdominal pain bloating. She will follow up with neurosurgery and urology after discharge. Pt Condition on Discharge: Stable Discharge Disposition: Discharge Home Discharge Instructions DIET: Follow Instructions for: As Tolerated, No Restrictions Activities you can perform: Weight Bearing as Dani Activities to Avoid: Strenuous Activity Follow up Referrals: Neurosurgery - 08/20/17 with Shady Guadalupe MD PCP Follow-up - 1 Week Urology - 1 Week with Juan Medina DO New Medications: Walker with Front Wheels (Walker with Front Wheels) 1 Mis Mis EA .XX DIRECTED, #1 0 Refills Hydrocodone/Acetaminophen (Hydrocodone-Acetamin 5-325 mg) 5 Mg-325 Mg Tablet 1 TAB PO Q4H PRN for PAIN SCALE 3 TO 5, #18 TAB Sennosides-Docusate Sodium (Gnp Senna Plus 8.6-50 mg) 8.6 Mg-50 Mg Tab 1 TAB PO BID, #30 TAB Jaqueline Little MD R2 August 13, 2017 16:15
== END 2017-08-13 17:10 | disposition home or self-care (01) | DRG 30 ==
LOC: NEPE 07:54 → NEDA 09:05 → OBSVTOIN 09:17 → N05B 10:38
PROVIDERS: ADMIT Family Medicine; ATTEND Family Medicine
PROC: 01NB0ZZ Release Lumbar Nerve, Open Approach (ICD-10-PCS; 2017-08-09)
PROC: 0ST40ZZ Resection of Lumbosacral Disc, Open Approach (ICD-10-PCS; principal; 2017-08-09 13:57)
PROC: 0T9B70Z Drainage of Bladder with Drainage Device, Via Natural or Artificial Opening (ICD-10-PCS; 2017-08-10)
DX: G83.4 Cauda equina syndrome (principal); G89.29 Other chronic pain; M51.27 Other intervertebral disc displacement, lumbosacral region; M54.9 Dorsalgia, unspecified; M54.2 Cervicalgia; W01.0XXA Fall on same level from slipping, tripping and stumbling without subsequent striking against object, initial encounter; R32 Unspecified urinary incontinence; R33.9 Retention of urine, unspecified; R42 Dizziness and giddiness
CPT/HCPCS: 72020; 72158; 76000; 80048; 81001; 85025; 85027; 94150; 99285; A9579; C9290; J0131; J1100; J1580; J2250; J2270; J2370; J2405; J2710; J3010; J7030; J7040; J7120